=== PATIENT | male | born 1940 | race Caucasian/White ===

== ENCOUNTER 2020-07-13 07:47 | Outpatient (REF) | payer MEDICARE, OTHER, SELFPAY ==
[2020-07-13 09:32] LABS: Hematocrit 35.9 % (42-52); Hemoglobin 11.9 g/dl (14.0-18.0); Mean Corpuscular HGB Conc 33.1 g/dl (31.0-36.0); Mean Corpuscular Hemoglobin 32.6 pg (27.0-33.0); Mean Corpuscular Volume 98.4 fL (80-98); Mean Platelet Volume 10.6 fL (9.4-12.4); Platelet Count 196 X10*3/uL (160-400); Red Blood Count 3.65 X10*6/uL (4.60-5.80); Red Cell Distribution Width 12.3 % (11.0-16.0); White Blood Count 5.4 X10*3/uL (4.8-10.8)
[2020-07-13 09:42] LABS: Estimated Average Glucose 108 mg/dL; Hemoglobin A1c % 5.4 %
[2020-07-13 10:21] LABS: Anion Gap 15 (12-20); Blood Urea Nitrogen 14 mg/dL (9-16); Calcium 9.3 mg/dL (8.4-10.2); Carbon Dioxide 25 mmol/L (22-29); Chloride 104 mmol/L (96-108); Cholesterol 120 mg/dL; Estimated Glomerular Filt Rate > 60; Glucose Fasting 115 mg/dL (60-99); HDL Cholesterol 41 mg/dL; LDL Cholesterol Calculated 58 mg/dl; Potassium 4.8 mmol/L (3.3-5.1); Sodium 139 mmol/L (135-145); Triglycerides 109 mg/dL
== END 2020-07-13 07:48 | disposition home or self-care (01) ==
LOC: HO.LAB 07:47
PROVIDERS: PCP Internal Medicine; Visit Provider Internal Medicine
DX: E78.5 Hyperlipidemia, unspecified (principal)
CPT/HCPCS: 36415; 80048; 80061; 83036; 85027

== ENCOUNTER 2021-07-17 12:08 | Outpatient (REF) | payer MEDICARE, OTHER, SELFPAY ==
--- NOTE | ~2021-07-17 | XR_ITS ---
EXAMINATION: XR ELBOW, RIGHT CLINICAL INFORMATION: This is an 81-year-old male with pain in the right elbow. COMPARISON: None TECHNIQUE: AP, lateral, and oblique views of the right elbow. FINDINGS: The joint spaces appear intact. The soft tissues are normal. No joint effusion is seen. No fracture is identified. Alignment is anatomic. Bony density at the base of the olecranon. This could be an enthesophyte or olecranon bursitis. XR/XR elbow RT min 3V IMPRESSION: 1. Possible olecranon bursitis.
== END 2021-07-17 12:09 | disposition home or self-care (01) ==
LOC: HO.HOSX 12:08
PROVIDERS: Visit Provider Orthopaedic Surgery
DX: M70.21 Olecranon bursitis, right elbow (principal)
CPT/HCPCS: 73080; 99202

== ENCOUNTER 2023-03-05 08:42 | Outpatient (REF) | payer MEDICARE, OTHER, SELFPAY ==
--- NOTE | ~2023-03-05 | CT_ITS ---
EXAMINATION: CT ANGIOGRAM CHEST CLINICAL INFORMATION: Peripheral vascular angioplasty. COMPARISON: None available. TECHNIQUE: Multiple axial images were obtained through the chest after the administration of 70 mL of Omnipaque 350 intravenous contrast. Extensive vascular post-processing including two-dimensional and three-dimensional reformatted images were created and reviewed on an independent workstation. This CT examination was performed using dose optimization techniques as appropriate, variously including the following: *Automated exposure control *Adjustment of mA and/or kV according to patient size (this includes techniques or standardized protocols for targeted exams where dose is matched to indication/reason for exam; i.e. extremities or head) *Use of iterative reconstruction technique DLP: 164 mGy-cm FINDINGS: Three-vessel coronary calcium. Calcified aortic valve leaflets. Top normal ascending aorta measuring 3.9 x 3.9 cm. No dissection. Normal caliber aortic arch with moderate atherosclerotic disease. Innominate artery stent across eccentric calcific atherosclerotic disease. There is a waist at the calcified stenosis with apparent significant narrowing of the stent. The stent appears patent. Moderate calcified stenosis of the left common carotid artery origin. Mild calcified stenosis of the left subclavian artery origin. Normal caliber descending thoracic aorta with mild to moderate atherosclerosis. The upper abdominal aorta is normal in caliber. The celiac and SMA origins are patent. Moderate centrilobular emphysema. 7 mm groundglass nodule in the anterior right upper lobe series 7 image 180. 5 mm nodule right middle lobe along the minor fissure series 7 image 339 diffuse airway wall thickening. No adenopathy. No pericardial effusion. Small hiatal hernia. Included upper abdomen is unremarkable. No adrenal mass. Degenerative changes in the spine. CT/CT angio chest aorta IMPRESSION: Innominate artery stent across eccentric calcified plaque. The stent appears patent. There is a waist at the level of the calcified plaque with significant appearing narrowing. Assessment is limited by artifact from the calcific disease. 7 mm groundglass nodule anterior right upper lobe. Per Fleischner Society Guidelines recommend a non-contrast chest CT at 6-12 months to confirm persistence, then additional non-contrast chest CTs every 2 years until 5 years, if stable. Fleischner guidelines were followed.
[2023-03-05] MEDS: iohexoL 350 MG/ML 100 ML INFUS..BTL IV (09:41)
[2023-03-05 14:00] LABS: Creatinine POC 0.5 mg/dL (0.5-1.4); GFR POC > 60
== END 2023-03-05 08:43 | disposition home or self-care (01) ==
LOC: HO.CT 08:42
PROVIDERS: PCP Internal Medicine; Visit Provider Radiology Vascular & Interventional Radiology
DX: Z95.820 Peripheral vascular angioplasty status with implants and grafts (principal)
CPT/HCPCS: 71275; 82565; Q9967

== ENCOUNTER 2023-04-14 08:25 | Outpatient (REF) | payer MEDICARE, OTHER, SELFPAY ==
[2023-04-14 08:47] LABS: MANUAL DIFF FLAG NO
[2023-04-14 09:16] LABS: Basophils Percent Auto 0.4 % (0-2); Eosinophils Absolute Auto 0.1 X10*3/uL (0.0-0.4); Eosinophils Percent Auto 2.2 % (0-4); Hematocrit 35.2 % (42.0-52.0); Hemoglobin 11.5 g/dl (14.0-18.0); Imm Gran Abs Auto 0.01 X10*3/uL (0.00-0.03); Imm Gran Pct Auto 0.2 % (0.0-0.4); Immature Retic Fraction 9.4 % (2.3-13.4); Lymphocytes Absolute Auto 1.8 X10*3/uL (1.2-4.9); Mean Corpuscular HGB Conc 32.7 g/dl (31.0-36.0); Mean Corpuscular Hemoglobin 32.1 pg (27.0-33.0); Mean Corpuscular Volume 98.3 fL (80.0-98.0); Monocytes Absolute Auto 0.4 X10*3/uL (0.1-1.2); Monocytes Percent Auto 8.8 % (2-11); Neutrophils Absolute Auto 2.3 x10*3/uL (2.0-8.3); Neutrophils Percent Auto 49.4 % (45-73); Platelet Count 176 X10*3/uL (160-400); Red Blood Count 3.58 X10*6/uL (4.60-5.80); Red Cell Distribution Width 12.3 % (11.0-16.0); Retic HGB Equivalent 36.8 pg (30.0-35.0); Reticulocyte Percent 1.4 % (0.5-1.8); Reticulocytes Absolute 0.049 X10*6/uL (0.026-0.095); White Blood Count 4.6 X10*3/uL (4.8-10.8)
[2023-04-14 09:48] LABS: Alanine Aminotransferase 9 U/L (0-40); Albumin Level 4.1 g/dL (3.5-5.0); Alkaline Phosphatase 50 U/L (39-117); Anion Gap 14 (12-20); Aspartate Amino Transferase 13 U/L (5-37); Bilirubin Total 0.6 mg/dL (0.0-1.0); Blood Urea Nitrogen 12 mg/dL (9-16); Calcium 9.6 mg/dL (8.4-10.2); Carbon Dioxide 25 mmol/L (22-29); Chloride 109 mmol/L (96-108); Cholesterol 111 mg/dL (<200); Estimated Glomerular Filt Rate > 60; Glucose Random 119 mg/dL (60-115); HDL Cholesterol 43 mg/dL (>40); Iron 76 mcg/dL (45-160); LDL Cholesterol Calculated 57 mg/dL (<100); Percent Iron Saturation 28 % (15-50); Potassium 4.4 mmol/L (3.3-5.1); Sodium 144 mmol/L (135-145); Total Iron Binding Capacity 273 mcg/dL (228-428); Total Protein 6.7 g/dL (6.5-8.0); Triglycerides 59 mg/dL (<150); Unsaturated Iron Binding 197 ug/dL
[2023-04-14 10:07] LABS: Ferritin 54 ng/mL (20-250); Free T4 (Free Thyroxine) 1.18 ng/dL (0.71-1.85); Thyroid Stimulating Hormone 1.69 uIU/mL (0.32-4.0)
[2023-04-14 10:15] LABS: Estimated Average Glucose 117 mg/dL; Hemoglobin A1c % 5.7 % (<6.0)
[2023-04-14 10:18] LABS: Folate 8.9 ng/mL (> or = 4.0); Vitamin B12 1112 pg/mL (200-900)
[2023-04-14 11:29] LABS: Creatinine Urine 114.57 mg/dL; Microalbumin Urine < 5.0 mg/L
== END 2023-04-14 08:26 | disposition home or self-care (01) ==
LOC: HO.LAB 08:25
PROVIDERS: PCP Internal Medicine; Visit Provider Internal Medicine
DX: E11.65 Type 2 diabetes mellitus with hyperglycemia (principal); E78.00 Pure hypercholesterolemia, unspecified
CPT/HCPCS: 36415; 80053; 80061; 82043; 82570; 82607; 82728; 82746; 83036; 83540; 84439; 84443; 85025; 85045

== ENCOUNTER 2023-04-25 10:32 | Outpatient (AMB) | payer MEDICARE, OTHER, SELFPAY ==
[2023-04-25 10:51] VITALS: BP 130/70; PULSE 66; RESP 17; BMI 23.5
--- NOTE | 2023-04-25 10:51 | MHC.PC.OV ---
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 Required: No Accompanied by: Self / Same As Patient Allergies shrimp Allergy (Intermediate, Verified 04/25/23 10:55) HIVES prednisone Allergy (Unknown, Verified 04/25/23 10:55) hives Avelox Allergy (Unknown, Uncoded 04/25/23 10:55) stomach upset Shrimp Flavor Allergy (Unknown, Uncoded 04/25/23 10:55) hives Medication List - Last Reconciled 04/25/23 by Kamila Cloud MD cilostazol 100 mg PO BID clopidogrel (Plavix) 75 mg PO DAILY latanoprost 0.005% 1 drp ophthalmic (eye) DAILY levothyroxine (Synthroid) 75 mcg PO QAM metformin ER 1,000 mg (2 x 500 mg) PO QPM 90 days simvastatin 10 mg PO DAILY tamsulosin 0.4 mg PO BID timolol maleate 0.5% ophthalmic (eye) triazolam 0.25 mg PO BEDTIME PRN Tobacco use date assessed: 06/17/22 Fall risk assessment: No Falls in past year Last assessed Fall Risk: 04/25/23 Dental Screening Dental Screen Date: 04/25/23 Did you have a dental visit in the last 12 months?: Yes Did you have a dental problem in the last 6 months where you did not have access to dental care?: No Was dental information given to patient?: Patient has dentist HPI 6 month f/u HPI Details 83-year-old male with a history of diabetes mellitus anemia of chronic disease BPH hypothyroidism and hypercholesterolemia last seen in October 2022 patient's diabetes is under control last blood work was just in April. Patient follows up with vascular surgeon March 2023 repeat stenting of the innominate artery performed in March 2023. On Plavix and aspirin. CT scan done in February 2023 showed a right upper lobe nodule pulmonary also. aspirin stopped . constipation [facility] Medical History (Updated 04/25/23 @ 11:36 by Kamila Cloud MD) Bursitis of right elbow Osteoarthritis of right hip Visual loss BPH (benign prostatic hyperplasia) Post laminectomy syndrome Impaired glucose metabolism Peripheral vascular disease Familial hypercholesterolemia Surgical History Hx of decompressive lumbar laminectomy History of cataract surgery History of inguinal hernia repair History of vasectomy Family History Mother Abdominal aneurysm Father No problems noted. Social History Housing: House Alcohol intake: current Patient Tobacco Use Status: Former Tobacco user Quit Date: quit 20 years ago Tobacco use type: Cigarette Years Smoked: 1999 e-Cigarette/Vaping Use: Never Used Second Hand Smoke Exposure: No service: Yes ([employer]ired [employer]-MSGT/E7) Current occupational status: retired Current occupation: rt hand dominant Cognitive needs: No Hearing needs: Yes Vision needs: Yes Questionnaire Thrive Questionnaire Date Thrive assessed: 06/17/22 REYNOLD-7 AMB Questionnaire REYNOLD-7 Date REYNOLD - 7 assessed: 06/17/22 Source: Developed by Drs. Jack Starks, Mely Corado, Kurt Martinez and colleagues, with an educational samy from [employer]. Physical exam (Primary Care) Vital Signs: Last Vital Signs Pulse 66 04/25/23 10:51 Resp 17 04/25/23 10:51 BP 130/70 04/25/23 10:51 BMI result Body Mass Index 23.5 Tobacco/Smoking Status: Tobacco use Status Tobacco use date assessed 06/17/22 04/25/23 10:57 Patient Tobacco Use Status Former Tobacco user 04/25/23 10:57 Tobacco use type Cigarette 04/25/23 10:57 e-Cigarette/Vaping Use Never Used 04/25/23 10:57 Thrive Assessment: Date of Thrive Assessment Date Thrive assessed 06/17/22 04/25/23 10:57 Const General: alert; No acute distress Eyes Conjunctivae: conjunctivae normal Resp Auscultation: clear to auscultation bilaterally Cardio Rate: regular rate Rhythm: regular rhythm GI Inspection: Yes normal to inspection Extrem General: Yes normal to inspection and No edema Assessment and Plan Assessment & Plan (1) Type 2 diabetes mellitus with hyperglycemia: Comment: Dr. Debra Pettit eye bad- retinal art occlusion Code(s): E11.65 - Type 2 diabetes mellitus with hyperglycemia Plan: Decrease the amount of carbohydrate intake, pasta, bread, rice and potatoes are all sugar and that is aside from all the sweet stuff, remember that fruits are good but they are Sweet also. Hemoglobin A1c goal of less than 7.0 patient is under control with metformin a 1000 mg at bedtime (2) Anemia of chronic disease: Code(s): D63.8 - Anemia in other chronic diseases classified elsewhere Plan: Continue to monitor and stable (3) Peripheral vascular disease: Comment: Dr. London Aortoiliac occlution with bilateral SFA occlusion September 2022[facility] seeing Dr. London had thoracic aortography with right arm angiography noted critical stenosis of the origin of the right and innominate artery repaired successfully with covered balloon expandable stent and has been prescribed Plavix 75 mg for 90 days this was done in September with Oct 04 2022 Code(s): I73.9 - Peripheral vascular disease, unspecified Plan: Patient just had an innominate artery stent placement March 2023 (4) BPH (benign prostatic hyperplasia): Code(s): N40.0 - Benign prostatic hyperplasia without lower urinary tract symptoms Plan: Continue with tamsulosin (5) Hypothyroidism: Code(s): E03.9 - Hypothyroidism, unspecified Plan: Continue with thyroid medication (6) Familial hypercholesterolemia: Code(s): E78.01 - Familial hypercholesterolemia Plan: Avoid fried foods, chicken skin, eggs, butter margarine, pastries and meat. Be it pork or beef they have a lot of cholesterol LDL goal less than 70 and triglyceride of less than 150 April 2023 last blood work on simvastatin 10 mg (7) Pulmonary nodule: Comment: 03/2023 RUL nodule Code(s): R91.1 - Solitary pulmonary nodule Medications: New [Superbeta prostate] 1 tab PO BID 60 caps 0RF Coding Level of Care Code Est Pt Level 4 (48042) Diagnoses Type 2 diabetes mellitus with hyperglycemia E11.65 Anemia of chronic disease D63.8 Peripheral vascular disease I73.9 BPH (benign prostatic hyperplasia) N40.0 Hypothyroidism E03.9 Familial hypercholesterolemia E78.01 Pulmonary nodule R91.1
== END 2023-04-25 11:41 | disposition home or self-care (01) ==
PROVIDERS: PCP Internal Medicine; Visit Provider Internal Medicine
DX: E11.65 Type 2 diabetes mellitus with hyperglycemia (principal); D63.8 Anemia in other chronic diseases classified elsewhere; I73.9 Peripheral vascular disease, unspecified; N40.0 Benign prostatic hyperplasia without lower urinary tract symptoms; E03.9 Hypothyroidism, unspecified; E78.01 Familial hypercholesterolemia; R91.1 Solitary pulmonary nodule
CPT/HCPCS: 99214

== ENCOUNTER 2023-05-20 10:20 | Outpatient (REF) | payer MEDICARE, OTHER, SELFPAY ==
[2023-05-20 11:42] LABS: Blood Urea Nitrogen 16 mg/dL (9-16); Estimated Glomerular Filt Rate > 60
== END 2023-05-20 10:21 | disposition home or self-care (01) ==
LOC: HO.LAB 10:20
PROVIDERS: PCP Internal Medicine; Visit Provider Radiology Vascular & Interventional Radiology
DX: R94.4 Abnormal results of kidney function studies (principal); R79.89 Other specified abnormal findings of blood chemistry
CPT/HCPCS: 36415; 82565; 84520

== ENCOUNTER 2023-06-03 09:38 | Outpatient (REF) | payer MEDICARE, OTHER, SELFPAY ==
--- NOTE | ~2023-06-03 | CT_ITS ---
EXAMINATION: CT ANGIOGRAM NECK CLINICAL INFORMATION: Atherosclerosis, calcified stenosis of left common carotid artery origin and left subclavian artery origin found on CT angiogram of the chest COMPARISON: CT angiogram of the chest on 03/05/2023, CT angiogram of head and neck on 06/08/2018 TECHNIQUE: The degree of stenosis determined by NASCET criteria. This CT examination was performed using dose optimization techniques as appropriate, variously including the following: *Automated exposure control *Adjustment of mA and/or kV according to patient size (this includes techniques or standardized protocols for targeted exams where dose is matched to indication/reason for exam; i.e. extremities or head) *Use of iterative reconstruction technique DLP: 338.37 mGy-cm STENOSIS MEASUREMENT: Degree of stenosis was measured and calculated based on NASCET criteria. Carotid stenosis reference using NASCET criteria: % stenosis = (1 - narrowest ICA diameter/diameter of distal cervical ICA) x 100. Mild - < 50% stenosis. Moderate - 50-69% stenosis. Severe - 70-94% stenosis. Near occlusion - 95-99% stenosis. Occluded - 100% stenosis. FINDINGS: RIGHT SIDE: At the skull base, extensive tram track like atherosclerotic calcifications are seen in the right internal carotid siphon without causing hemodynamically significant stenosis. Right internal carotid artery: Mixed fibrocalcific plaques are seen at origin of posterior right internal carotid bulb. There is significant 75% stenosis in diameter at origin of the right internal carotid artery due to large calcified atherosclerotic plaques at common carotid bifurcation. Additional large atherosclerotic calcifications are seen at posterior wall of right internal carotid bulb without causing hemodynamically significant stenosis. Right external carotid artery: Smoothly patent. Right common carotid artery: Multiple large atherosclerotic calcifications are seen at bifurcation, causing up to 78.9% stenosis in diameter, series 8 image #121. Right vertebral artery: Smoothly patent and smaller in caliber. LEFT SIDE: At the skull base, extensive tram track like atherosclerotic calcifications are seen in the left internal carotid siphon without causing hemodynamically significant stenosis. Left internal carotid artery: Smoothly patent and tortuous, making a prominent posterior pattern in the proximal cervical portion. Calcified atherosclerotic plaques are seen at the posterior wall of proximal left internal carotid artery without causing hemodynamically significant stenosis. Left external carotid artery: Smoothly patent. Left common carotid artery: Smoothly patent. Calcified atherosclerotic plaques are seen at posterior wall bifurcation without causing hemodynamically significant stenosis. Left vertebral artery: Smoothly patent and markedly dominant. At the superior mediastinum, the visualized right innominate artery metallic arterial stent is displaced eccentrically into the lateral lumen by large atherosclerotic plaque, without hemodynamically significant narrowing. Calcified atherosclerotic plaques are seen at the origin of left common carotid artery without causing hemodynamically significant stenosis. Extensive atherosclerotic calcifications are seen at the origin and proximal left subclavian artery without causing hemodynamically significant stenosis. Calcified atherosclerotic plaques are seen at right innominate artery bifurcation without causing hemodynamically significant stenosis in the right subclavian and right common carotid arteries. Extensive atherosclerotic calcifications of the aortic arch are seen. Ascending thoracic aortic fusiform ectasia is partially visualized, measuring 3.8 cm in AP diameter, 3.9 cm in width in the visualized portion (previously 3.9 x 3.9 cm). Multilevel bilateral apophyseal joint and uncovertebral joint osteoarthritis with loss of joint space, sclerosis, facet hypertrophy and osteophytosis are seen. Advanced C6-C7 degenerative cervical disc disease, anterior and posterior syndesmophytes are present. Predominantly paraseptal emphysematous bullae are seen in the visualized right upper lobe predominantly in the apical segment. Smaller emphysematous bullae are also present in the left upper lobe. CT/CT angio neck IMPRESSION: 1. Interval development of Extensive atherosclerotic vascular calcifications are seen at the origin of the left subclavian artery without causing hemodynamically significant stenosis. 2. Interval placement of right innominate artery metallic arterial stent, displaced eccentrically into the lateral lumen by large atherosclerotic plaque, without causing hemodynamically significant stenosis. 3. Interval progression to Extensive atherosclerotic calcifications at the origin of the right internal carotid artery due to extension of atherosclerotic calcifications from the right common carotid artery, causing severe 75% stenosis in diameter. 4. Interval development of severe distal right common carotid artery 78.9% stenosis at bifurcation due to extensive atherosclerotic calcifications. 5. Interval development of Extensive atherosclerotic calcifications in proximal left internal carotid artery without causing hemodynamically significant stenosis. 6. Interval progression of Extensive atherosclerotic calcifications of the aortic arch and proximal left subclavian artery without causing hemodynamically significant stenosis. 7. Interval marked progression of bilateral internal carotid siphon atherosclerotic calcifications without hemodynamically significant stenosis. 8. Interval progression of multilevel cervical spondylosis. 9. Predominantly paraseptal emphysematous bullae in the visualized upper lobes, right greater than left. 10. Unchanged Ascending thoracic aortic fusiform ectasia since CT angiogram of the chest. Fleischner guidelines were followed.
[2023-06-03] MEDS: iohexoL 350 MG/ML 100 ML INFUS..BTL IV (10:28)
== END 2023-06-03 09:39 | disposition home or self-care (01) ==
LOC: HO.CT 09:38
PROVIDERS: PCP Internal Medicine; Visit Provider Radiology Vascular & Interventional Radiology
DX: I70.8 Atherosclerosis of other arteries (principal)
CPT/HCPCS: 70498; Q9967

== ENCOUNTER 2023-11-07 12:19 | Outpatient (AMB) | payer MEDICARE, OTHER, SELFPAY ==
[2023-11-07 12:34] VITALS: BP 132/70; PULSE 92; O2SAT 97; BMI 23.5
--- NOTE | 2023-11-07 12:34 | MHC.PC.OV ---
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 Allergies shrimp Allergy (Intermediate, Verified 11/07/23 12:34) HIVES prednisone Allergy (Unknown, Verified 11/07/23 12:34) hives Avelox Allergy (Unknown, Uncoded 11/07/23 12:34) stomach upset Shrimp Flavor Allergy (Unknown, Uncoded 11/07/23 12:34) hives Medication List - Last Reconciled 11/07/23 by Kamila Cloud, cilostazol 100 mg PO BID clopidogrel (Plavix) 75 mg PO DAILY latanoprost 0.005% 1 drp ophthalmic (eye) DAILY levothyroxine (Synthroid) 75 mcg PO QAM metformin ER 1,000 mg (2 x 500 mg) PO QPM 90 days simvastatin 10 mg PO DAILY [Superbeta prostate 1 tab PO BID] tamsulosin 0.4 mg PO BID timolol maleate 0.5% ophthalmic (eye) triazolam 0.25 mg PO BEDTIME PRN Tobacco use date assessed: 11/07/23 Fall risk assessment: No Falls in past year Last assessed Fall Risk: 11/07/23 Dental Screening Dental Screen Date: 11/07/23 HPI November 17 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 Review of the notes patient has been following up with the plastic surgeon for reconstruction of the basal cell carcinoma Mohs defect right with ectropion repair 11/29/2023. Patient also follows up with vascular for the history of right retinal embolus has had stenting of the right innominate artery 09/28/2022. Repeat stenting 03/31/2023 carotid ultrasounds showing 50-69% bilateral patient is here for preoperative evaluation for the Mohs surgery scheduled in November.[employer] weight exercises 15 min no chest pain as for walking due to PVD deny chest pain [facility] Medical History (Updated 11/07/23 @ 12:46 by Kamila Cloud MD) Bursitis of right elbow Osteoarthritis of right hip Visual loss BPH (benign prostatic hyperplasia) Post laminectomy syndrome Impaired glucose metabolism Peripheral vascular disease Familial hypercholesterolemia Surgical History Hx of decompressive lumbar laminectomy History of cataract surgery History of inguinal hernia repair History of vasectomy Family History Mother Abdominal aneurysm Father No problems noted. Social History (Updated 11/07/23 @ 12:53 by Kamila Cloud MD) Housing: House Alcohol intake: former Patient Tobacco Use Status: Former Tobacco user Tobacco use type: Cigarette Years Smoked: 1999 e-Cigarette/Vaping Use: Never Used Second Hand Smoke Exposure: No service: Yes (Retired [employer]-MSGT/E7) Current occupational status: retired Current occupation: rt hand dominant Cognitive needs: No Hearing needs: Yes Vision needs: Yes Questionnaire Thrive Questionnaire Date Thrive assessed: 06/17/22 AUDIT C Alcohol Use Questionnaire (AUDIT-C) 1. How often do you have a drink containing alcohol?: Never 2. How many drinks containing alcohol do you have on a typical day when you are drinking?: 1 or 2 3. How often do you have six or more drinks on one occasion?: Never Total Score: 0 Score Reviewed/Action Taken: No REYNOLD-7 AMB Questionnaire REYNOLD-7 Date REYNOLD - 7 assessed: 04/25/23 Source: Developed by Drs. Jack Starks, Mely Corado, Kurt Martinez and colleagues, with an educational samy from [employer]. Review of Systems Const Denies poor appetite and Denies weakness Eyes Denies no additional complaints ENT Reports Normal hearing present, Denies dizziness, Denies nasal congestion, Denies tinnitus and Denies sore throat Card Denies chest pain, Denies syncope, Denies rapid heart rate and Denies dyspnea Resp Denies cough and Denies dyspnea GI Denies change in stool character, Reports constipation, Denies diarrhea, Denies nausea and Denies vomiting Denies dysuria and Denies urinary frequency Neuro Reports Normal hearing present, Denies confusion, Denies dizziness, Denies syncope and Denies weakness Psych Denies confusion Physical exam (Primary Care) Vital Signs: Last Vital Signs Pulse 92 11/07/23 12:34 BP 132/70 11/07/23 12:34 Pulse Ox 97 11/07/23 12:34 Oxygen Delivery Method Room Air 11/07/23 12:34 BMI result Body Mass Index 23.5 Tobacco/Smoking Status: Tobacco use Status Tobacco use date assessed 11/07/23 11/07/23 12:34 Patient Tobacco Use Status Former Tobacco user 11/07/23 12:53 Tobacco use type Cigarette 11/07/23 12:53 e-Cigarette/Vaping Use Never Used 11/07/23 12:53 Thrive Assessment: Date of Thrive Assessment Date Thrive assessed 06/17/22 11/07/23 12:34 Const General: No confusion Orientation/consciousness: No confusion Eyes Conjunctivae: conjunctivae normal Resp Auscultation: clear to auscultation bilaterally Cardio Rate: regular rate Rhythm: regular rhythm GI Inspection: Yes normal to inspection Neuro General: No confusion Cranial nerves: Yes Normal hearing present Extrem General: Yes normal to inspection and No edema Results AMB Hemoglobin A1c AMB Hemoglobin A1c 5.5 % Last Edit by LIYAH Connor on 11/07/23 12:48 Results Reviewed Results Reviewed: Laboratory Last Values Hgb A1c (Clinic) 5.5 % (4.0-6.0) 11/07/23 12:48 Assessment and Plan Assessment & Plan (1) Preop exam for internal medicine: Code(s): Z01.818 - Encounter for other preprocedural examination Plan: EKG and blood work reviewed. With the age and diabetes patient is in the intermediate risk category for any cardiac complication presently no further workup needed at this time and may proceed with the contemplated procedure. Patient has been advised to hold Plavix and cilostazol 1 week before the procedure. Thank you very much for letting me participate in the care of this patient. (2) Atherosclerosis of both carotid arteries: Comment: Moderate internal carotid artery atherosclerosis June 2023 Code(s): I65.23 - Occlusion and stenosis of bilateral carotid arteries Plan: Patient is being followed up by vascular and bilateral carotid arteries patent (3) Type 2 diabetes mellitus with hyperglycemia: Comment: Dr. Debra Pettit eye bad- retinal art occlusion Code(s): E11.65 - Type 2 diabetes mellitus with hyperglycemia Plan: Decrease the amount of carbohydrate intake, pasta, bread, rice and potatoes are all sugar and that is aside from all the sweet stuff, remember that fruits are good but they are Sweet also. On metformin a 1000 mg once a day (4) Anemia of chronic disease: Code(s): D63.8 - Anemia in other chronic diseases classified elsewhere Plan: Continuing to monitor. Stable (5) Peripheral vascular disease: Comment: Dr. London Aortoiliac occlution with bilateral SFA occlusion September 2022[facility] seeing Dr. London had thoracic aortography with right arm angiography noted critical stenosis of the origin of the right and innominate artery repaired successfully with covered balloon expandable stent and has been prescribed Plavix 75 mg for 90 days this was done in September with Oct 04 2022 Code(s): I73.9 - Peripheral vascular disease, unspecified Plan: Patient is followed up by the vascular surgeon (6) Hypothyroidism: Code(s): E03.9 - Hypothyroidism, unspecified Plan: Continue with thyroid medication (7) Familial hypercholesterolemia: Code(s): E78.01 - Familial hypercholesterolemia Plan: Avoid fried foods, chicken skin, eggs, butter margarine, pastries and meat. Be it pork or beef they have a lot of cholesterol on simvastatin 10 mg at bedtime (8) BPH (benign prostatic hyperplasia): Code(s): N40.0 - Benign prostatic hyperplasia without lower urinary tract symptoms Plan: Continue with tamsulosin Orders: Orders AMB Hemoglobin A1c Today E11.65 - Type 2 diabetes mellitus with hyperglycemia ECG 12 lead EKG Today Z01.818 - Encounter for other preprocedural examination Complete Blood Count Auto Diff Today Z01.818 - Encounter for other preprocedural examination Basic Metabolic Panel Today Z01.818 - Encounter for other preprocedural examination Coding Level of Care Code Est Pt Level 4 (53176) Diagnoses Preop exam for internal medicine Z01.818 Atherosclerosis of both carotid arteries I65.23 Type 2 diabetes mellitus with hyperglycemia E11.65 Anemia of chronic disease D63.8 Peripheral vascular disease I73.9 Hypothyroidism E03.9 Familial hypercholesterolemia E78.01 BPH (benign prostatic hyperplasia) N40.0
== END 2023-11-07 13:05 | disposition home or self-care (01) ==
PROVIDERS: PCP Internal Medicine; Visit Provider Internal Medicine
DX: E11.65 Type 2 diabetes mellitus with hyperglycemia (principal); I73.9 Peripheral vascular disease, unspecified; D63.8 Anemia in other chronic diseases classified elsewhere; Z01.818 Encounter for other preprocedural examination; I65.23 Occlusion and stenosis of bilateral carotid arteries; E03.9 Hypothyroidism, unspecified; E78.01 Familial hypercholesterolemia; N40.0 Benign prostatic hyperplasia without lower urinary tract symptoms
CPT/HCPCS: 83036; 99214

== ENCOUNTER → 2023-11-07 13:17 | Outpatient (REF) | payer MEDICARE, OTHER, SELFPAY ==
--- NOTE | 2023-11-07 13:29 | ECG_ITS ---
Test Reason : pre op Blood Pressure : / mmHG Vent. Rate : 078 BPM Atrial Rate : 078 BPM P-R Int : 172 ms QRS Dur : 104 ms QT Int : 400 ms P-R-T Axes : 063 041 075 degrees QTc Int : 456 ms Sinus rhythm with occasional Premature ventricular complexes Otherwise normal ECG When compared with ECG of 05-JUL-2010 10:25, Premature ventricular complexes are now Present QRS duration has increased Nonspecific T wave abnormality now evident in Lateral leads Referred By: Kamila Cloud Electronically Signed By:JOHNNY RAMIREZ MD
[2023-11-07 13:31] LABS: MANUAL DIFF FLAG NO
[2023-11-07 13:53] LABS: Basophils Percent Auto 0.4 % (0-2); Eosinophils Absolute Auto 0.1 X10*3/uL (0.0-0.4); Eosinophils Percent Auto 1.7 % (0-4); Hematocrit 36.9 % (42.0-52.0); Hemoglobin 12.2 g/dl (14.0-18.0); Imm Gran Abs Auto 0.01 X10*3/uL (0.00-0.03); Imm Gran Pct Auto 0.2 % (0.0-0.4); Lymphocytes Absolute Auto 2.2 X10*3/uL (1.2-4.9); Mean Corpuscular HGB Conc 33.1 g/dl (31.0-36.0); Mean Corpuscular Hemoglobin 32.6 pg (27.0-33.0); Mean Corpuscular Volume 98.7 fL (80.0-98.0); Mean Platelet Volume 9.9 fL (9.4-12.4); Monocytes Absolute Auto 0.4 X10*3/uL (0.1-1.2); Monocytes Percent Auto 8.5 % (2-11); Neutrophils Percent Auto 43.2 % (45-73); Platelet Count 195 X10*3/uL (160-400); Red Blood Count 3.74 X10*6/uL (4.60-5.80); Red Cell Distribution Width 12.3 % (11.0-16.0); White Blood Count 4.7 X10*3/uL (4.8-10.8)
[2023-11-07 15:07] LABS: Anion Gap 15 (12-20); Blood Urea Nitrogen 13 mg/dL (9-16); Calcium 9.8 mg/dL (8.4-10.2); Carbon Dioxide 25 mmol/L (22-29); Chloride 105 mmol/L (96-108); Estimated Glomerular Filt Rate > 60; Glucose Random 110 mg/dL (60-115); Potassium 4.3 mmol/L (3.3-5.1); Sodium 141 mmol/L (135-145)
== END ==
LOC: HO.CARD 13:17
PROVIDERS: PCP Internal Medicine; Visit Provider Internal Medicine
DX: Z01.818 Encounter for other preprocedural examination (principal)
CPT/HCPCS: 36415; 80048; 85025; 93005

== ENCOUNTER → 2023-11-07 13:29 | Outpatient (BNV) | payer MEDICARE, OTHER, SELFPAY | PROVIDERS: PCP Internal Medicine; Visit Provider Internal Medicine Cardiovascular Disease | DX: Z01.818 Encounter for other preprocedural examination (principal) | CPT/HCPCS: 93010 ==